=== PATIENT | male | born 1995 | race Caucasian/White ===

== ENCOUNTER 2017-04-22 14:02 | Emergency (ER) | payer OTHER ==
[~2017-04-22] VITALS: Ht 177.8 cm; Wt 72.7 kg
[~2017-04-22 14:02] MED LIST: PERCOCET 325 MG1 TA2 PO; [UNRECOGNIZED DRUG - OTHER]
[2017-04-22 14:20] VITALS: BP 131/78; TEMP 97.9
[2017-04-22 16:54] VITALS: PULSE 67
== END 2017-04-22 16:55 | disposition home or self-care (01) ==
LOC: COL.ER 14:02
DX: S93.401A Sprain of unspecified ligament of right ankle, initial encounter (principal); M67.432 Ganglion, left wrist; X50.1XXA Overexertion from prolonged static or awkward postures, initial encounter; Y92.89 Other specified places as the place of occurrence of the external cause